=== PATIENT | female | born 1945 | race Caucasian/White ===

== ENCOUNTER → 2021-05-19 13:45 | Outpatient (BNVA) | payer MEDICARE, OTHER, SELFPAY | PROVIDERS: PCP Nurse Practitioner Family; Visit Provider Nurse Practitioner Family | DX: R35.0 Frequency of micturition (principal); R31.9 Hematuria, unspecified; N39.0 Urinary tract infection, site not specified | CPT/HCPCS: 81000; 87077; 87086; 87184 ==

== ENCOUNTER 2021-05-20 15:18 | Outpatient (CLI) | payer MEDICARE, OTHER, SELFPAY ==
--- NOTE | 2021-05-20 16:00 | MR_ITS ---
WS: [id number] MRI RIGHT SHOULDER NONCONTRAST TECHNIQUE: Sagittal T2, coronal T1, T2 and proton density imaging. Axial gradient PDE imaging. CLINICAL INFORMATION: M25.511 - Pain in right shoulder COMPARISON: None. 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 Subacromial spurring. Small amount of AC joint edema. Slight impingement on the underlying supraspin atus. Small intrasubstance tear involving the distal supraspinatus deep to the acromion. Tendinopathy of the supraspinatus which is otherwise intact. Normal infraspinatus. Normal teres minor. Normal subscapularis. Biceps tendon is absent in the bicipi rian groove likely chronically torn. Degenerative fraying of the glenoid labrum. Degenerative arthriti s glenohumeral joint. Small ganglion cyst along the infraspinatus musculotendinous junction. MR/MR shoulder RT wo con* [id number] IMPRESSION: 1. Moderate to advanced degenerative arthritis at the AC joint with moderate d ownsloping acromion. Subacromial spurring with narrowing of the subacromial spa ce. 2. Small intrasubstance tear involving the supraspinatus distally. Tendinopath y supraspinatus which is otherwise intact. 3. Rotator cuff is otherwise intact. 4. Biceps tendon is absent from the bicipital groove presumably chronically to rn. 5. Degenerative fraying of the glenoid labrum. 6. Small amount of subacromial/subdeltoid fluid.
== END 2021-05-20 15:19 | disposition home or self-care (01) ==
LOC: RADSHAW 15:21
PROVIDERS: PCP Nurse Practitioner Family; Visit Provider Nurse Practitioner Family
DX: M25.511 Pain in right shoulder (principal); M19.011 Primary osteoarthritis, right shoulder; M75.101 Unspecified rotator cuff tear or rupture of right shoulder, not specified as traumatic
CPT/HCPCS: 73221

== ENCOUNTER → 2021-05-27 00:01 | Outpatient (BNVA) | payer MEDICARE, OTHER, SELFPAY | PROVIDERS: PCP Nurse Practitioner Family; Visit Provider Nurse Practitioner Family | DX: N30.00 Acute cystitis without hematuria (principal); M19.011 Primary osteoarthritis, right shoulder | CPT/HCPCS: 87086 ==

== ENCOUNTER → 2021-06-03 11:35 | Outpatient (BNVA) | payer MEDICARE, OTHER, SELFPAY | PROVIDERS: PCP Nurse Practitioner Family; Visit Provider Orthopaedic Surgery | DX: M19.011 Primary osteoarthritis, right shoulder (principal) | CPT/HCPCS: 73030 ==

== ENCOUNTER → 2021-07-02 15:06 | Outpatient (BNVA) | payer MEDICARE, OTHER, SELFPAY | PROVIDERS: PCP Nurse Practitioner Family; Visit Provider Nurse Practitioner Family | DX: N30.00 Acute cystitis without hematuria (principal); M54.9 Dorsalgia, unspecified; R31.9 Hematuria, unspecified | CPT/HCPCS: 81000; 87077; 87086; 87184 ==

== ENCOUNTER → 2021-07-11 09:09 | Outpatient (BNVA) | payer MEDICARE, OTHER, SELFPAY | PROVIDERS: PCP Nurse Practitioner Family; Visit Provider Nurse Practitioner Family | DX: N30.00 Acute cystitis without hematuria (principal) | CPT/HCPCS: 81000 ==

== ENCOUNTER → 2021-09-04 08:17 | Outpatient (BNVA) | payer MEDICARE, OTHER, SELFPAY | PROVIDERS: PCP Nurse Practitioner Family; Visit Provider Nurse Practitioner Family | DX: E66.9 Obesity, unspecified (principal) | CPT/HCPCS: 80053; 80061 ==

== ENCOUNTER → 2022-11-05 11:23 | Outpatient (BNVA) | payer MEDICARE, SELFPAY | PROVIDERS: PCP Nurse Practitioner Family; Visit Provider Nurse Practitioner Family | DX: E78.5 Hyperlipidemia, unspecified (principal); E66.9 Obesity, unspecified | CPT/HCPCS: 80053; 80061 ==

== ENCOUNTER → 2022-11-24 10:21 | Outpatient (BNVA) | payer MEDICARE, SELFPAY | PROVIDERS: PCP Nurse Practitioner Family; Visit Provider Nurse Practitioner Family | DX: E66.9 Obesity, unspecified (principal); M25.511 Pain in right shoulder; R89.9 Unspecified abnormal finding in specimens from other organs, systems and tissues | CPT/HCPCS: 80061 ==

== ENCOUNTER 2023-01-13 12:50 | Outpatient (CLI) | payer MEDICARE, SELFPAY ==
--- NOTE | 2023-01-13 13:30 | XR_ITS ---
WS: [id number] SCREENING DEXA SCAN [employer] CLINICAL INFORMATION: M81.0 - Age-related osteoporosis without current patholog... COMPARISON: None. FINDINGS: The LEFT forearm bone mineral density measures 0.699. This corresponds to a T score score of -2.0 and Z score of 0.3. Left femoral neck bone mineral density measures 0.787 g/cm2. This corresponds to a T score of -1.8 an d Z score of -0.2. Right femoral neck bone mineral density measures 0.814 g/cm2. This corresponds to a T score -1.5of an d Z score of 0.0. Mean femoral neck bone mineral density measures 0.800 g/cm2. This corresponds to a T score of -1.6 an d Z score of -0.1. XR/XR DEXA axial skeleton* [id number] IMPRESSION: Osteopenia LEFT forearm. Osteopenia femoral necks. Patient's FRAX calculated 10 year probability for major osteoporotic fracture i s 19.2 % and osteoporotic hip fracture is 4.5%.
== END 2023-01-13 12:51 | disposition home or self-care (01) ==
LOC: RAD 12:53
PROVIDERS: PCP Nurse Practitioner Family; Visit Provider Nurse Practitioner Family
DX: M81.0 Age-related osteoporosis without current pathological fracture (principal)
CPT/HCPCS: 77080; 80053; 80061

== ENCOUNTER → 2023-03-01 11:41 | Outpatient (BNVA) | payer MEDICARE, SELFPAY | PROVIDERS: PCP Nurse Practitioner Family; Visit Provider Nurse Practitioner Family | DX: N30.00 Acute cystitis without hematuria (principal) | CPT/HCPCS: 81000; 87086 ==

== ENCOUNTER → 2023-11-03 09:15 | Outpatient (BNVA) | payer MEDICARE, SELFPAY | PROVIDERS: PCP Nurse Practitioner Family; Visit Provider Nurse Practitioner Family | DX: E78.5 Hyperlipidemia, unspecified (principal) | CPT/HCPCS: 80053; 80061 ==

== ENCOUNTER → 2024-04-19 11:23 | Outpatient (BNVA) | payer MEDICARE, SELFPAY | PROVIDERS: PCP Nurse Practitioner Family; Visit Provider Nurse Practitioner Family | DX: I10 Essential (primary) hypertension (principal); R53.83 Other fatigue; E78.2 Mixed hyperlipidemia | CPT/HCPCS: 80053; 80061; 84443; 85025 ==